=== PATIENT | male | born 1990 | race Caucasian/White ===

== ENCOUNTER 2019-04-24 05:59 | Emergency (ER) | payer SELFPAY ==
[~2019-04-24] VITALS: Ht 185.4 cm; Wt 83.0 kg
--- NOTE | 2019-04-24 06:15 | NUR ---
BROUGHT IN FROM REHAB HOUSE BY PARAMEDICS. PATIENT HAD SMOKED FENTANYL. PATIENT FOUND UNCONSCIOUS, HAD 2 SPRAY OF NARCAN. PATIENT NOW ALERT AND AWAKE.
--- NOTE | 2019-04-24 06:15 | NUR ---
[facility]O FROM A REHAB HOUSE. TO ER BED 9. AAOX4. NO RESP DISTRESS NOTED. AGITATED. BROUGHT IN FOR FOUND UNCONSCIOUS LYING SUPINE WITH FOIL AND BUDGET CLERK BESIDE PT. PER EMS REPORT, PT WAS GIVEN 2 SPRAY INTRANASALLY AT THE FACILITY PRIOR TO EMS ARRIVAL. PT WAS GIVEN 2 SPRAY BY EMS GIFT OFFICER ER, TOTAL 4 SPRAY. MD WAS AT BEDSIDE. AWAITING ORDERS.
[2019-04-24 09:24] VITALS: BP 136/74
== END 2019-04-24 09:25 | disposition home or self-care (01) ==
LOC: ER 06:01
DX: T50.7X2A Poisoning by analeptics and opioid receptor antagonists, intentional self-harm, initial encounter (principal); R00.0 Tachycardia, unspecified; R45.1 Restlessness and agitation; Y92.89 Other specified places as the place of occurrence of the external cause